=== PATIENT | male | born 1960 | race Caucasian/White ===

== ENCOUNTER 2023-02-05 14:43 | Emergency (ER) | payer OTHER ==
[2023-02-05 15:20] VITALS: RESP 18; TEMP 97.9
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
[2023-02-05 16:34] VITALS: BP 146/84; PULSE 69
== END 2023-02-05 16:21 | disposition home or self-care (01) ==
LOC: EC 14:43
DX: S16.1XXA Strain of muscle, fascia and tendon at neck level, initial encounter (principal); I10 Essential (primary) hypertension; Z87.891 Personal history of nicotine dependence; V49.40XA Driver injured in collision with unspecified motor vehicles in traffic accident, initial encounter
CPT/HCPCS: 70450; 72125; 99284